=== PATIENT | male | born 1985 | race Caucasian/White ===

== ENCOUNTER → 2022-06-27 | Day surgery (SDC) | payer BC ==
[~2022-06-27] MED LIST: PROPOFOL 40 ML ONE
[2022-06-27 08:48] VITALS: BP 119/65; TEMP 96.6
== END ==
LOC: CSHSDC 08:12
PROVIDERS: ATTEND Specialist
PROC: 5A2204Z Restoration of Cardiac Rhythm, Single (ICD-10-PCS; principal; 2022-06-27)
DX: I48.19 Other persistent atrial fibrillation (principal); G47.33 Obstructive sleep apnea (adult) (pediatric); E66.9 Obesity, unspecified; Z68.35 Body mass index [BMI] 35.0-35.9, adult; Z79.82 Long term (current) use of aspirin; Z79.899 Other long term (current) drug therapy
CPT/HCPCS: 92960; 93005; 93010; 93312; J2704